=== PATIENT | male | born 1990 | race Native Hawaiian/Other Pacific Islander ===

== ENCOUNTER 2018-02-14 11:50 | Emergency (ER) | payer OTHER ==
[~2018-02-14] VITALS: Ht 175.3 cm; Wt 74.8 kg
[2018-02-14 12:16] VITALS: BP 110/67; TEMP 98.8
== END 2018-02-14 12:21 | disposition home or self-care (01) ==
LOC: ED 11:50
DX: T15.92XA Foreign body on external eye, part unspecified, left eye, initial encounter (principal)
CPT/HCPCS: 99282

== ENCOUNTER 2018-08-29 06:34 | Emergency (ER) | payer OTHER ==
[~2018-08-29] VITALS: Ht 175.3 cm; Wt 79.4 kg
[2018-08-29] MEDS ORDERED: ABILIFY MYCITE15 MG PO (06:51)
[2018-08-29 08:00] VITALS: BP 130/73; TEMP 98.6
== END 2018-08-29 08:00 | disposition home or self-care (01) ==
LOC: ED 06:34
DX: S90.31XA Contusion of right foot, initial encounter (principal); W20.8XXA Other cause of strike by thrown, projected or falling object, initial encounter
CPT/HCPCS: 99283

== ENCOUNTER 2021-08-09 10:32 | Emergency (ER) | payer OTHER ==
[~2021-08-09] VITALS: Ht 175.3 cm; Wt 92.1 kg
[~2021-08-09 10:32] MED LIST: ABILIFY MYCITE15 MG PO
[2021-08-09 10:40] VITALS: BP 162/99; TEMP 98.7
== END 2021-08-09 11:20 | disposition home or self-care (01) ==
LOC: ED 10:32
DX: K08.89 Other specified disorders of teeth and supporting structures (principal); K02.9 Dental caries, unspecified; R03.0 Elevated blood-pressure reading, without diagnosis of hypertension
CPT/HCPCS: 96372; 99283; J0696; J1885

== ENCOUNTER 2021-10-01 17:05 | Emergency (ER) | payer OTHER ==
[~2021-10-01] VITALS: Ht 175.3 cm; Wt 92.1 kg
[2021-10-01 17:11] VITALS: BP 127/69; TEMP 97.5
== END 2021-10-01 18:29 | disposition home or self-care (01) ==
LOC: ED 17:05
DX: J20.9 Acute bronchitis, unspecified (principal); Z20.822 Contact with and (suspected) exposure to COVID-19; F17.210 Nicotine dependence, cigarettes, uncomplicated
CPT/HCPCS: 87502; 87635; 99283; U0003

== ENCOUNTER 2022-10-01 15:47 | Emergency (ER) | payer OTHER ==
[~2022-10-01] VITALS: Ht 175.3 cm; Wt 83.0 kg
[2022-10-01 15:50] VITALS: BP 130/64; TEMP 97.3
[2022-10-01 16:18] LABS: POTASSIUM 3.7 mmol/L (3.6-5.2)
[2022-10-01 16:23] LABS: PLATELET COUNT 325 K/uL (142-355)
== END 2022-10-01 17:35 | disposition home or self-care (01) ==
LOC: ED 15:47
PROVIDERS: Family Medicine
DX: R07.9 Chest pain, unspecified (principal); F19.10 Other psychoactive substance abuse, uncomplicated
CPT/HCPCS: 36415; 80053; 80307; 84484; 85027; 85379; 93005; 99283